=== PATIENT | female | born 1970 | race Caucasian/White ===

== ENCOUNTER → 2024-01-10 10:21 | Outpatient (REF) | payer BC, SELFPAY | LOC: RAD 10:21 | PROVIDERS: ATTENDING PHYSICIAN Obstetrics & Gynecology; FAMILY PHYSICIAN Student in an Organized Health Care Education/Training Program | DX: R10.2 Pelvic and perineal pain (principal) | CPT/HCPCS: 76770; 76830; 76856 ==

== ENCOUNTER → 2024-02-11 07:31 | Outpatient (REF) | payer BC, SELFPAY | LOC: RAD 07:31 | PROVIDERS: ATTENDING PHYSICIAN Obstetrics & Gynecology; FAMILY PHYSICIAN Student in an Organized Health Care Education/Training Program | DX: N28.89 Other specified disorders of kidney and ureter (principal) | CPT/HCPCS: 74178; Q9967 ==

== ENCOUNTER → 2024-04-24 17:04 | Outpatient (REF) | payer BC, SELFPAY | LOC: MRI 3T 17:04 | PROVIDERS: ATTENDING PHYSICIAN Psychiatry & Neurology Neurology; FAMILY PHYSICIAN Student in an Organized Health Care Education/Training Program | DX: E34.8 Other specified endocrine disorders (principal) | CPT/HCPCS: 70553; A9575 ==

== ENCOUNTER → 2024-06-04 17:24 | Outpatient (REF) | payer BC, SELFPAY | LOC: WDC 17:24 | PROVIDERS: ATTENDING PHYSICIAN Student in an Organized Health Care Education/Training Program | DX: Z12.31 Encounter for screening mammogram for malignant neoplasm of breast (principal) | CPT/HCPCS: 77063; 77067 ==

== ENCOUNTER 2024-07-31 06:27 | Day surgery (SDC) | payer BC, SELFPAY | END 2024-07-31 15:55 | disposition home or self-care (01) | LOC: GI 06:27 | PROVIDERS: ATTENDING PHYSICIAN Internal Medicine Gastroenterology; FAMILY PHYSICIAN Student in an Organized Health Care Education/Training Program | DX: Z12.11 Encounter for screening for malignant neoplasm of colon (principal); K64.0 First degree hemorrhoids; K51.00 Ulcerative (chronic) pancolitis without complications; D50.9 Iron deficiency anemia, unspecified; R12 Heartburn; K44.9 Diaphragmatic hernia without obstruction or gangrene; K31.7 Polyp of stomach and duodenum; D12.3 Benign neoplasm of transverse colon; D12.2 Benign neoplasm of ascending colon; K62.9 Disease of anus and rectum, unspecified; Z98.890 Other specified postprocedural states; Z86.0100 Personal history of colon polyps, unspecified | CPT/HCPCS: 43251; 45385; 45380; 43239; 88305; 88342 ==

== ENCOUNTER → 2024-10-27 09:52 | Outpatient (REF) | payer BC, SELFPAY | LOC: HWRAD 09:52 | PROVIDERS: ATTENDING PHYSICIAN Student in an Organized Health Care Education/Training Program; OTHER PHYSICIAN Nurse Practitioner; REFERRING PHYSICIAN Obstetrics & Gynecology | DX: R10.2 Pelvic and perineal pain (principal); R10.13 Epigastric pain | CPT/HCPCS: 76700; 76830; 76856 ==

== ENCOUNTER → 2025-02-25 16:03 | Outpatient (REF) | payer BC, SELFPAY ==
[2025-02-25 17:10] LABS: Urine Character Cloudy (Clear)
[2025-02-25 17:32] LABS: Urine Urothelial Cell 0-2 /LPF (FEW)
[2025-02-25 17:33] LABS: Urine White Cell 60-70 /HPF (0-5)
== END ==
LOC: REG 16:03
PROVIDERS: ATTENDING PHYSICIAN Obstetrics & Gynecology; FAMILY PHYSICIAN Student in an Organized Health Care Education/Training Program
DX: N39.0 Urinary tract infection, site not specified (principal)
CPT/HCPCS: 81003; 81015; 87077; 87086

== ENCOUNTER → 2025-03-16 17:11 | Outpatient (REF) | payer BC, SELFPAY ==
[2025-03-16 17:35] LABS: Urine Character Slightly Cloudy (Clear)
[2025-03-16 18:27] LABS: Urine Urothelial Cell 0-2 /LPF (FEW)
[2025-03-16 18:28] LABS: Urine White Cell 60-70 /HPF (0-5)
== END ==
LOC: REG 17:11
PROVIDERS: ATTENDING PHYSICIAN Obstetrics & Gynecology
DX: N39.0 Urinary tract infection, site not specified (principal)
CPT/HCPCS: 81003; 81015; 87086

== ENCOUNTER → 2025-06-08 17:03 | Outpatient (REF) | payer BC, SELFPAY | LOC: WDC 17:03 | PROVIDERS: ATTENDING PHYSICIAN Student in an Organized Health Care Education/Training Program | DX: Z12.31 Encounter for screening mammogram for malignant neoplasm of breast (principal) | CPT/HCPCS: 77063; 77067 ==